=== PATIENT | male | born 1960 | race Caucasian/White ===

== ENCOUNTER 2018-06-27 22:18 | Emergency (ER) | payer OTHER ==
--- NOTE | 2018-06-27 22:48 | EDPHY ---
General Time Seen by Provider: 06/27/18 22:34 Narrative: CHIEF COMPLAINT: I cut my hand HISTORY OF PRESENT ILLNESS: Patient presents with complaints of "I cut my hand." He reports accidental laceration to the left hand within the past 1 hr. He was using a kitchen knife when he accidentally cut between middle ring finger web space. He has moderate bleeding that stopped with pressure. No numbness or tingling. No difficulty bending, straightening or opening the fingers. He has minimal pain rest. Mild if he moves the area. He has no bleeding disorder. Tetanus up-to-date as of 2012. No other associated complaints or modifying factors. TIME OF INJURY: Less than 1 hr prior to arrival TETANUS STATUS: Less than 5 years ago MEDICAL/SURGICAL/SOCIAL HISTORY: Trigeminal neuralgia, REVIEW OF SYSTEMS: Ten systems reviewed and are negative unless otherwise noted in the HPI EXAMINATION General Appearance: Alert, no distress Head: normocephalic, atraumatic Cardiovascular: Symmetric radial pulses 2+. Brisk cap refill in the fingers of the left hand. Neurological: A&O, 2 point sensory symmetric, interossei strength symmetric Skin: Warm and dry, no rash. There is a 1.25 cm laceration in the webspace of the left hand between fingers 3 and 4. No exposure of the deep tissue structures. No pulsatile bleeding. No foreign body. Good signs of perfusion distally Extremities: Mild tenderness in the area of the laceration of the left hand webspace. There is no bony tenderness of the hand. Full flexion extension of the fingers and symmetric range of motion of the interossei. DIFFERENTIAL DIAGNOSES: Including but not limited to laceration, laceration complication, laceration with tendon injury, laceration with muscular injury MDM: 10:45 p.m. Laceration of the left hand webspace between fingers 3 and 4. No involvement of the deep tissue structures. Excellent strength of the interossei. I have administered local anesthetic and we will irrigate and closed wound. No indication for x-ray. 11:05 p.m. Laceration has been repaired without difficulty. Neuro intact distally. Wound care discussed and demonstrated. This includes finger splint. We discussed ER precautions. We discussed light activity using the finger splint. We discussed return here in 7-10 days for suture removal. I have answered all his questions. Discharged home stable condition PROCEDURE: Laceration repair Consent: Verbal Location: Left hand, webspace between fingers 3 and 4 Length of repair: 1.25cm Complexity: Complex due to location Layer involvement: Single Anesthesia: Local. 0.5% Marcaine without epinephrine. 4 mL Irrigation: Extensive Debridement: None Procedure description: Following good anesthesia, the wound was copiously irrigated. Wound bed was explored with a sterile glove, and there is no foreign body noted. No apparent injury to the deep tissue structures. Wound borders were approximated well with good hemostasis. Tolerated well without complication. Suture/Staple material: 4-0 Prolene, 2 simple ruptured sutures Wound care: Routine as discussed Suture/Staple removal: 7-10 Days SUPERVISION: This patient was independently evaluated without direct involvement of or examination by the attending physician. ED Precautions: Worsening pain. Erythema, edema, cyanosis, pallor, paresthesia or anesthesia. - History Smoking Status: Never smoked - Objective Vital Signs: Initial Vital Signs Temperature (C) 99.1 F 06/27/18 22:19 Heart Rate 65 06/27/18 22:19 Respiratory Rate 16 06/27/18 22:19 Blood Pressure 167/105 H 06/27/18 22:19 O2 Sat (%) 96 06/27/18 22:19 O2 Delivery Mode Room Air Allergies/Adverse Reactions: Sulfa (Sulfonamide Antibiotics) Allergy (Verified 06/27/18 22:23) Home Medications: Medication Instructions Recorded Lisinopril [Zestril 20 mg (*)] 09/04/13 carBAMazepine [Tegretol] 100 mg TID 09/04/13 Departure - Departure Disposition: Home, Routine, Self-Care Clinical Impression: Laceration of left hand Qualifiers: Encounter type: initial encounter Foreign body presence: without foreign body Qualified Code(s): S61.412A - Laceration without foreign body of left hand, initial encounter Condition: Good Instructions: Care For Your Stitches (ED), Laceration (ED) Additional Instructions: 1. Daily wound care as discussed 2. User finger splint for the duration of the sutures 3. Return here in 7-10 days for suture removal Referrals: Joselo Shrama MD [Primary Care Provider] - As per Instructions Physician,Emergency DeptMD [Medical Doctor] - As per Instructions (7-10 days for suture removed)
[2018-06-27 23:25] VITALS: BP 143/84
== END 2018-06-27 23:24 | disposition home or self-care (01) ==
PROC: 0HQGXZZ Repair Left Hand Skin, External Approach (ICD-10-PCS; principal; 2018-06-27)
DX: S61.412A Laceration without foreign body of left hand, initial encounter (principal); W26.0XXA Contact with knife, initial encounter; Y99.8 Other external cause status

== ENCOUNTER → 2019-02-06 | Outpatient (CLI) | payer OTHER | LOC: BMCIMAGING 14:24 | PROVIDERS: ATTEND Family Medicine | DX: M79.644 Pain in right finger(s) (principal) ==